=== PATIENT | female | born 1965 | race Caucasian/White ===

== ENCOUNTER → 2021-01-11 | Outpatient (CLI) | payer MEDICARE | LOC: EXRD 09:05 | DX: Z13.820 Encounter for screening for osteoporosis (principal); M85.80 Other specified disorders of bone density and structure, unspecified site; M81.0 Age-related osteoporosis without current pathological fracture; N95.1 Menopausal and female climacteric states | CPT/HCPCS: 77080 ==

== ENCOUNTER → 2021-02-21 | Outpatient (CLI) | payer MEDICARE | LOC: HEART 5 15:13 | DX: R00.2 Palpitations (principal); R00.0 Tachycardia, unspecified ==

== ENCOUNTER → 2022-05-13 | Outpatient (CLI) | payer MEDICARE | LOC: KOH-I 09:21 | DX: M79.672 Pain in left foot (principal) | CPT/HCPCS: 73630 ==

== ENCOUNTER → 2022-05-21 | Outpatient (CLI) | payer MEDICARE | LOC: KOH-I 08:50 | DX: M71.472 Calcium deposit in bursa, left ankle and foot (principal) | CPT/HCPCS: 73700 ==

== ENCOUNTER → 2022-06-04 | Outpatient (CLI) | payer MEDICARE ==
[~2022-06-04] MED LIST: COZAAR50 MG PO; CYMBALTA60 MG PO; FOSAMAX70 MG PO; LOPRESSOR 25 MG25 MG PO; LOVASTATIN40 MG PO; LOW DOSE ASPIRI81 MG PO; MELOXICAM15 MG PO; OZEMPIC1 MG/0.71 INJ; PROTONIX20 MG PO; SYNTHROID100 MCG PO; ULTRAM50 MG PO; WOMEN'S DAILY1 EAC1 PO; XYZAL5 MG PO
== END ==
LOC: US 14:26
DX: Z01.810 Encounter for preprocedural cardiovascular examination (principal)
CPT/HCPCS: 93926

== ENCOUNTER → 2022-06-07 | Outpatient (CLI) | payer MEDICARE ==
[2022-06-07 11:04] LABS: HEMOGLOBIN 15.7 gm/dl (12.3-15.3); RED BLOOD COUNT 4.82 M/UL (4.00-5.10); WHITE BLOOD COUNT 4.7 K/UL (4.5-11.0)
[2022-06-07 11:44] LABS: BUN/CREATININE RATIO 16 (0-10)
== END ==
LOC: OPSV2 10:00
PROVIDERS: Podiatrist Foot & Ankle Surgery
DX: Z01.818 Encounter for other preprocedural examination (principal)
CPT/HCPCS: 36415; 80048; 85027; 93005

== ENCOUNTER → 2022-06-19 | Day surgery (SDC) | payer MEDICARE | END | disposition home or self-care (01) | LOC: OR 05:21 | DX: M77.32 Calcaneal spur, left foot (principal); M79.89 Other specified soft tissue disorders; M72.2 Plantar fascial fibromatosis | CPT/HCPCS: 73650; 76000; J0690; J1100; J1885; J2001; J2250; J2405; J2704; J2795; J3010; J3370 ==